=== PATIENT | male | born 1945 | race Caucasian/White ===

== ENCOUNTER → 2017-12-12 | Day surgery (SDC) | payer OTHER, MEDICARE ==
[~2017-12-12] VITALS: Ht 177.8 cm; Wt 85.7 kg
[~2017-12-12] MED LIST: LANTUS SOL100 UNIT/1 SC; SALINE NASAL SP30 ML NASB; TRIBENZOR 40-51 EACH PO; VITAMIN D2000 UNIT PO
--- NOTE | 2017-12-12 09:43 | Operative Report ---
Operative/Inv Procedure Report Surgery Date: 12/12/17 Name of Procedure: Laparoscopic right inguinal hernia repair Pre-Operative Diagnosis: Right inguinal hernia Post-Operative Diagnosis: Same Estimated Blood Loss: scant Surgeon/Associate Relations Specialist: Afshin MAYO,Fermín Price/Verona GILL Anesthesia: general endotracheal tube Implants: Parietex mesh Operative Indication: 72-year-old male with intermittently incarcerating bowel containing hernia presents for elective repair Operative/Procedure Note Note: After consent patient is brought to the operating room laid supine. General anesthesia was obtained and the abdomen was prepped and draped. Skin was anesthetized with local anesthesia and a transverse infraumbilical incision made sharply. We identified the rectus fascia and incised transversely. Stay sutures were placed. Rectus muscle was retracted laterally and a dissecting balloon placed posterior to it. It was inflated under direct vision the camera and replaced with a blunt Ariza port. Gas was instilled. 2, 5 mm ports were placed in the infraumbilical midline after local anesthesia was instilled and under direct vision and camera. Began our dissection at the pubis and delineated the symphysis. Franck's ligament was identified and cleared. Then dissected laterally and developed the iliopubic tract. There was a large indirect sac with associated cord lipoma. These structures were dissected free from the cord structures and delivered from the indirect space. The cord structures were circumferentially dissected. Once the dissection was completed a right -sided piece of Parietex mesh was placed in the cavity. It was placed around the cord structures re-create the internal ring and cover the femoral and direct spaces as well. Gas was allowed to escape on maintaining proper orientation of the mesh. The fascia was closed with 0 Vicryl suture. Skin incisions closed with 4-0 Vicryl. Steri-Strips and sterile dressing applied. Sponge and needle counts are correct. Findings: Large indirect CC: Sasha MAYO,Louisa Welsh
== END ==
LOC: STS 01:16
DX: K40.90 Unilateral inguinal hernia, without obstruction or gangrene, not specified as recurrent (principal); E11.9 Type 2 diabetes mellitus without complications; Z79.4 Long term (current) use of insulin; I10 Essential (primary) hypertension
CPT/HCPCS: C1781; C9399; J0131; J0690; J2250